=== PATIENT | male | born 1990 | race Hispanic/Latino ===

== ENCOUNTER 2021-04-16 21:01 | Emergency (ER) | payer OTHER ==
[2021-04-17 02:08] LABS: Absolute Lymphocytes (CBC) 3.2 K/uL (0.7-4.9); Basophils % 0.9 % (0-1.3); Hematocrit 40.9 % (39.6-49.0); Lymphocytes % 39.8 % (15.3-44.8); MPV 8.1 fL (7.6-11.3); RBC Red Blood Cell Count 4.74 M/uL (4.33-5.43)
[2021-04-17 02:15] LABS: Protime INR 0.95
[2021-04-17 02:28] LABS: ALT/SGPT 41 U/L (12-78); AST/SGOT 18 U/L (15-37); Albumin 4.1 g/dL (3.4-5.0); Alkaline Phosphatase 101 U/L (45-117); BUN Blood Urea Nitrogen 15 mg/dL (7-18); Bicarbonate 28 mmol/L (21-32); Bilirubin Direct < 0.1 mg/dL (0-0.2); Bilirubin Total 0.3 mg/dL (0.2-1.0); Glucose Level 86 mg/dL (74-106); Magnesium 2.1 mg/dL (1.8-2.4); NT PRO-BNP 16 pg/mL (<125); Protein, Total 7.5 g/dL (6.4-8.2); Sodium Level 144 mmol/L (136-145); Troponin (Emerg Dept Use Only) < 0.02 ng/mL (0.0-0.045)
[2021-04-17] MEDS ORDERED: ACETAMINOPHEN 500 MG TAB ONE (02:47)
[2021-04-17 02:59] LABS: Urine Blood Negative (Negative); Urine Glucose Negative (Negative); Urine Protein Negative (Negative); Urine Specific Gravity 1.025 (1.005-1.030); Urine pH 5.5 (5.0-7.0)
--- NOTE | 2021-04-17 03:07 | EDPHYS ---
Physician Documentation [facility] Name: Jagdish Lambert Age: 30 yrs Sex: Male : 1990 Arrival Date: 04/16/2021 Time: 21:04 Bed 12 Private MD: ED Physician Austen Chopra HPI: 04/17 01:30 This 30 yrs old Male presents to ER via Ambulatory with complaints of Chest cp Pain, Shortness Of Breath. 01:30 The patient or guardian reports chest pain that is located primarily in the anterior cp chest wall, right. The pain does not radiate. Associated signs and symptoms: Pertinent positives: shortness of breath, Pertinent negatives: abdominal pain, cough, diaphoresis, dizziness, lower extremity pain, lower extremity swelling, palpitations, recent travel, syncope, vomiting. The chest pain is described as sharp. Duration: The patient or guardian reports a single episode, that is still ongoing, and unchanged. Modifying factors: the symptoms are aggravated by deep breathing, certain movements. Severity of pain: in the emergency department the pain is unchanged despite home interventions. Historical: - Allergies: 04/16 21:55 Aspirin; kg - Home Meds: 21:55 None [Active]; kg - PMHx: 21:55 None; kg - PSHx: 21:55 Cyst removal; kg - Immunization history:: Adult Immunizations not up to date, Client reports having NOT received the Covid vaccine. - Social history:: Smoking status: Patient denies any tobacco usage or history of. Patient uses alcohol, occasionally. ROS: 04/17 01:35 Constitutional: Negative for body aches, chills, fever, poor PO intake. cp 01:35 Eyes: Negative for injury, pain, redness, and discharge. cp 01:35 ENT: Negative for ear pain, sore throat, difficulty swallowing, difficulty handling secretions. 01:35 Cardiovascular: Positive for chest pain, of the anterior aspect of right upper chest, Negative for edema, palpitations. 01:35 Respiratory: Negative for cough, shortness of breath, wheezing. 01:35 Abdomen/GI: Negative for abdominal pain, nausea, vomiting, and diarrhea, constipation. 01:35 Back: Negative for radiated pain. 01:35 : Negative for urinary symptoms. 01:35 Skin: Negative for rash. 01:35 Neuro: Negative for altered mental status, headache, syncope, near syncope, weakness. 01:35 All other systems are negative. Exam: 01:40 Head/Face: Normocephalic, atraumatic. cp 01:40 Constitutional: The patient appears in no acute distress, alert, awake, non-diaphoretic, non-toxic, well developed, well nourished. 01:40 Eyes: Periorbital structures: appear normal, Conjunctiva: normal, no exudate, no injection, Sclera: no appreciated abnormality, Lids and lashes: appear normal, bilaterally. 01:40 ENT: External ear(s): are unremarkable, Nose: is normal, Mouth: Lips: moist, Oral cp mucosa: moist, Posterior pharynx: Airway: no evidence of obstruction, patent. 01:40 Neck: ROM/movement: is normal, is supple, without pain, no range of motions limitations. 01:40 Chest/axilla: Inspection: normal, Palpation: is normal, no crepitus, no tenderness. 01:40 Cardiovascular: Rate: normal, Rhythm: regular, Edema: is not appreciated, JVD: is not appreciated. 01:40 Respiratory: the patient does not display signs of respiratory distress, Respirations: normal, no use of accessory muscles, no retractions, labored breathing, is not present, Breath sounds: are clear throughout, no decreased breath sounds, no stridor, no wheezing. 01:40 Abdomen/GI: Inspection: abdomen appears normal, Palpation: abdomen is soft and non-tender, in all quadrants. 01:40 Back: pain, is absent, ROM is normal. 01:40 Neuro: Orientation: to person, place \T\ time. Mentation: is normal, Motor: moves all fours, strength is normal, Gait: is steady, at a normal pace, without difficulty. 01:52 ECG was reviewed by the Attending Physician. cp Vital Signs: 04/16 21:53 BP 117 / 69; Pulse 84; Resp 20; Temp 98.4(O); Pulse Ox 99% on R/A; Weight 77.11 kg (R); kg Height 5 ft. 6 in. (167.64 cm) (R); Pain 2/10; 04/17 03:31 BP 112 / 64; Pulse 70; Resp 18; Temp 98.2; Pulse Ox 99% ; Pain 2/10; ms4 08/07 21:53 Body Mass Index 27.44 (77.11 kg, 167.64 cm) kg MDM: 01:37 Patient medically screened. cp 02:00 Differential diagnosis: abnormal EKG, acute myocardial infarction, acute pericarditis, cp chest wall pain, costochondritis, gastritis, myocarditis, pericarditis, pleurisy, pneumonia, pneumothorax, pulmonary embolus. 03:05 Data reviewed: vital signs, nurses notes, lab test result(s), EKG, radiologic studies, cp plain films. Test interpretation: by ED physician or midlevel provider: ECG, chest xray negative for infiltrates. Special discussion: Based on the patient's history, exam, and Dx evaluation, there is no indication for emergent intervention or inpatient Tx. It is understood by the patient/guardian that if the Sx's persist or worsen they need to return immediately for re-evaluation. 03:05 Counseling: I had a detailed discussion with the patient and/or guardian regarding: the cp historical points, exam findings, and any diagnostic results supporting the discharge/admit diagnosis, lab results, radiology results, to return to the emergency department if symptoms worsen or persist or if there are any questions or concerns that arise at home. 03:05 Response to treatment: the patient's symptoms have mildly improved after treatment, and cp as a result, I will discharge patient. ED course: Vital signs stable. Pain improved with meds. Discussed results of labs, EKG and chest x-ray via return with no acute findings. Will discharge to home with prescription for NSAIDs given for pain.. 04/17 01:19 Order name: Basic Metabolic Panel; Complete Time: 02:54 kg 04/17 02:54 Interpretation: Normal except: CL 111. cp 04/17 01:19 Order name: CBC with Diff; Complete Time: 02:54 kg 04/17 02:54 Interpretation: Reviewed. cp 04/17 01:19 Order name: LFT's; Complete Time: 02:54 kg 04/17 01:19 Order name: Magnesium; Complete Time: 02:54 kg 04/17 01:19 Order name: NT PRO-BNP; Complete Time: 02:54 kg 04/17 01:19 Order name: PT-INR; Complete Time: 02:54 kg 04/16 21:58 Order name: XRAY Chest Pa And Lat (2 Views) kg 04/17 01:19 Order name: Troponin (emerg Dept Use Only); Complete Time: 02:54 kg 04/17 01:19 Order name: EKG; Complete Time: 01:19 kg 04/17 01:38 Order name: UDS cp 04/17 01:38 Order name: D-Dimer; Complete Time: 02:54 cp 04/17 02:59 Order name: Urine Dipstick-Ancillary; Complete Time: 03:00 EDMS 04/17 01:19 Order name: Cardiac monitoring; Complete Time: 01:51 kg 04/17 01:19 Order name: EKG - Nurse/Tech; Complete Time: 01:51 kg 04/17 01:19 Order name: IV Saline Lock; Complete Time: 01:51 kg 04/17 01:19 Order name: Labs collected and sent; Complete Time: 01:51 kg 08 01:19 Order name: O2 Per Protocol; Complete Time: 01:51 kg 08 01:19 Order name: O2 Sat Monitoring; Complete Time: 01:51 kg EC:52 Rate is 66 beats/min. Rhythm is regular. [place] interval is normal. QRS interval is normal. cp QT interval is normal. T waves are Inverted in lead aVR. Interpreted by me. Reviewed by me. Administered Medications: 02:31 Drug: Tylenol 1000 mg Route: PO; ms4 02:31 Follow up: Response: No adverse reaction ms4 03:23 Drug: Ketorolac 15 mg Route: IVP; Site: right antecubital; ms4 03:23 Follow up: Response: No adverse reaction ms4 Disposition: 05:40 Co-signature as Attending Physician, Austen Chopra MD. pkl Disposition Summary: 04/17/21 03:06 Discharge Ordered Location: Home cp Problem: new cp Symptoms: have improved cp Condition: Stable cp Diagnosis - Chest pain, unspecified cp Followup: cp - With: Private Physician - When: 1 - 2 days - Reason: Recheck today's complaints Discharge Instructions: - Discharge Summary Sheet cp - Nonspecific Chest Pain, Adult cp - Aspirin and Your Heart cp Forms: - Medication Reconciliation Form cp - Thank You Letter cp - Antibiotic Education cp - Prescription Opioid Use cp Prescriptions: - Diclofenac Sodium 75 mg Oral tablet,delayed release (DR/EC) - take 1 tablet by ORAL route 2 times per day; 20 tablet; Refills: 0, Product cp Selection Permitted Signatures: Dispatcher [employer] EDAusten Jacobs MD MD pkl Jesus Mcrae, BOOSTER PUMP OILER-C BOOSTER PUMP OILER-Cla1 Manuel Hurst PA PA cp Denae Medley, RN RN kg Malissa Torres RN RN ms4 Corrections: (The following items were deleted from the chart) 04/18 02:44 04/17 03:08 Data reviewed: vital signs, nurses notes, lab test result(s), EKG, cp radiologic studies, plain films, cp 04/18 02:44 04/17 03:08 Test interpretation: by ED physician or midlevel provider: ECG, chest xray cp negative for infiltrates, cp 04/18 02:44 04/17 03:08 Special discussion: Based on the patient's history, exam, and Dx cp evaluation, there is no indication for emergent intervention or inpatient Tx. It is understood by the patient/guardian that if the Sx's persist or worsen they need to return immediately for re-evaluation. cp
--- NOTE | 2021-04-17 03:07 | ER ---
Nurse's Notes [facility] Name: Jagdish Lambert Age: 30 yrs Sex: Male : 1990 Arrival Date: 04/16/2021 Time: 21:04 Bed 12 Private MD: Diagnosis: Chest pain, unspecified Presentation: 04/16 21:53 Chief complaint: Patient states: Chest pain, sob since 13:00 Pt stated, "When I take kg deep breaths it hurts and when I lean back against something it hurts.". Coronavirus screen: Client denies travel out of the [place] in the last 14 days. At this time, unable to obtain information related to travel outside the [place] At this time, the client does not indicate any symptoms associated with coronavirus-19. Ebola Screen: Patient negative for fever greater than or equal to 101.5 degrees Fahrenheit, and additional compatible Ebola Virus Disease symptoms Patient denies exposure to infectious person. Patient denies travel to an Ebola-affected area in the 21 days before illness onset. Initial Sepsis Screen: Does the patient meet any 2 criteria? No. Patient's initial sepsis screen is negative. Does the patient have a suspected source of infection? No. Patient's initial sepsis screen is negative. Risk Assessment: Do you want to hurt yourself or someone else? Patient reports no desire to harm self or others. Onset of symptoms was April 16, 2021 at 13:00. 21:53 Method Of Arrival: Ambulatory kg 21:53 Acuity: NORRIS 4 kg Triage Assessment: 21:55 General: Appears in no apparent distress. Behavior is calm, cooperative, appropriate kg for age, quiet. Pain: Complains of pain in anterior aspect of right upper chest Pain radiates to left scapular area and left subscapular area Pain currently is 2 out of 10 on a pain scale. at worst was 6 out of 10 on a pain scale. level that patient reports is acceptable is 2 out of 10 on a pain scale. Quality of pain is described as sharp, stabbing, squeezing, Pain began 13:00 Aggravated by Pressing against it, taking deep breaths. Cardiovascular: Rhythm is regular Chest pain is described as Pain is 3 out of 10 on a pain scale. Historical: - Allergies: 21:55 Aspirin; kg - Home Meds: 21:55 None [Active]; kg - PMHx: 21:55 None; kg - PSHx: 21:55 Cyst removal; kg - Immunization history:: Adult Immunizations not up to date, Client reports having NOT received the Covid vaccine. - Social history:: Smoking status: Patient denies any tobacco usage or history of. Patient uses alcohol, occasionally. Screenin/08 01:50 Abuse screen: Denies threats or abuse. Denies injuries from another. Nutritional ms4 screening: No deficits noted. Tuberculosis screening: No symptoms or risk factors identified. Fall Risk None identified. Assessment: 02:31 Also complains of no other symptoms. Pain: Complains of pain in chest Pain does not ms4 radiate. Pain currently is 8 out of 10 on a pain scale. Quality of pain is described as sharp, Aggravated by repositioning, Also complains of shortness of breath. Neuro: No deficits noted. Cardiovascular: Reports chest pain, shortness of breath, Heart tones S1 S2 Rhythm is regular. Respiratory: No deficits noted. Reports shortness of breath on exertion. Vital Signs: 04/16 21:53 BP 117 / 69; Pulse 84; Resp 20; Temp 98.4(O); Pulse Ox 99% on R/A; Weight 77.11 kg (R); kg Height 5 ft. 6 in. (167.64 cm) (R); Pain 2/10; 04/17 03:31 BP 112 / 64; Pulse 70; Resp 18; Temp 98.2; Pulse Ox 99% ; Pain 2/10; ms4 04/16 21:53 Body Mass Index 27.44 (77.11 kg, 167.64 cm) kg ED Course: 04/16 21:04 Patient arrived in ED. as 21:55 Triage completed. kg 21:55 Arm band placed on right wrist. kg 23:29 XRAY Chest Pa And Lat (2 Views) In Process Unspecified. EDMS 04/17 01:24 Manuel Hurst PA is PHCP. cp 01:24 Austen Chopra MD is Attending Physician. cp 01:50 Inserted saline lock: 20 gauge in right antecubital area, using aseptic technique. ms4 Blood collected. 03:30 No provider procedures requiring assistance completed. IV discontinued, intact, ms4 bleeding controlled, No redness/swelling at site. Pressure dressing applied. 03:31 Patient has correct armband on for positive identification. nuclear monitoring technician on. ms4 03:31 Patient maintains SpO2 saturation greater than 95% on room air. ms4 Administered Medications: 02:31 Drug: Tylenol 1000 mg Route: PO; ms4 02:31 Follow up: Response: No adverse reaction ms4 03:23 Drug: Ketorolac 15 mg Route: IVP; Site: right antecubital; ms4 03:23 Follow up: Response: No adverse reaction ms4 Outcome: 03:06 Discharge ordered by . micki 03:30 Discharged to home ambulatory. ms4 03:30 Condition: stable 03:30 Discharge instructions given to patient, Instructed on discharge instructions, follow up and referral plans. Demonstrated understanding of instructions, follow-up care, medications, Prescriptions given X 1. 03:32 Patient left the ED. ms4 Signatures: Dispatcher [employer] EDKacey Crenshaw Corey, PA PA cp Graham, Kristen, RN YIFAN kg Malissa Torres RN RN ms4
[2021-04-17 03:39] VITALS: O2SAT 99
[2021-04-17 03:41] VITALS: BP 112/64; TEMP 98.2
[2021-04-17 03:43] LABS: Barbiturates NEGATIVE (NEGATIVE); Benzodiazepines NEGATIVE (NEGATIVE); Cocaine NEGATIVE (NEGATIVE); METHAMPHETAM NEGATIVE (NEGATIVE); Methadone NEGATIVE (NEGATIVE); Opiates NEGATIVE (NEGATIVE); Phencyclidine NEGATIVE (NEGATIVE); THC Cannibis POSITIVE (NEGATIVE)
[2021-04-17] MEDS ORDERED: KETOROLAC 30 MG/ML INJ ONE (03:47)
--- NOTE | 2021-04-17 08:01 | EKG ---
Test Date: 2021-04-17 Test Time: 01:46:24 [employer] Molding Machine Operator: ERICA MEASUREMENT RESULTS: Intervals: Rate: 66 KS: 156 QRSD: 90 QT: 360 QTc: 377 [place]: P: 34 KS: 156 QRS: 10 T: 31 INTERPRETIVE STATEMENTS: Normal sinus rhythm with sinus arrhythmia Normal ECG Compared to ECG 11/13/2003 07:29:00 No significant changes Electronically Signed On 04-17-21 08:00:12 CDT by Cali Hawk
--- NOTE | 2021-04-17 08:35 | RAD REPORT ---
EXAM DESCRIPTION: RAD - Chest Pa And Lat (2 Views) - 04/16/2021 11:29 pm CLINICAL HISTORY: PAIN COMPARISON: No comparisons FINDINGS: No evidence of edema or pneumonia. The heart size is within normal limits.No acute osseous abnormality. No significant pleural effusions or pneumothorax. IMPRESSION: No acute cardiopulmonary disease.
== END 2021-04-17 03:32 | disposition home or self-care (01) ==
LOC: ER 21:01
DX: R07.89 Other chest pain (principal); Z88.6 Allergy status to analgesic agent
CPT/HCPCS: 36415; 71046; 80048; 80076; 80307; 81003; 83735; 83880; 84484; 85025; 85379; 85610; 93005; 96374; 99285